=== PATIENT | female | born 1955 | race Caucasian/White ===

== ENCOUNTER 2020-07-17 07:34 | Outpatient (REF) | payer OTHER, SELFPAY ==
[2020-07-17 08:11] LABS: Basophils Percent Auto 0.8 % (0-2); Eosinophils Absolute Auto 0.4 X10*3/uL (0.0-0.4); Eosinophils Percent Auto 7.8 % (0-4); Hematocrit 40.3 % (37-47); Hemoglobin 13.4 g/dl (12.0-16.0); Imm Gran Abs Auto 0.01 X10*3/uL (0.00-0.03); Imm Gran Pct Auto 0.2 % (0.0-0.4); Immature Retic Fraction 10.1 % (3.0-15.9); Lymphocytes Absolute Auto 0.6 X10*3/uL (1.2-4.9); Lymphocytes Percent Auto 12.7 % (20-40); MANUAL DIFF FLAG SCAN; Mean Corpuscular HGB Conc 33.3 g/dl (31.0-35.0); Mean Corpuscular Volume 90.2 fL (80-98); Mean Platelet Volume 10.4 fL (9.4-12.3); Monocytes Absolute Auto 0.6 X10*3/uL (0.1-1.2); Monocytes Percent Auto 12.2 % (2-11); Neutrophils Absolute Auto 3.3 X10*3/uL (2.0-8.3); Neutrophils Percent Auto 66.3 % (45-73); Platelet Count 230 X10*3/uL (160-400); Red Blood Count 4.47 X10*6/uL (4.20-5.50); Red Cell Distribution Width 12.8 % (11.0-16.0); Retic HGB Equivalent 34.5 pg (30.0-35.0); Reticulocyte Percent 1.8 % (0.5-1.8); Reticulocytes Absolute 0.082 X10*6/uL (0.026-0.095); SCAN SMEAR FLAG 1
[2020-07-17 08:31] LABS: SLIDE REVIEW VERIFIED
[2020-07-17 08:55] LABS: Alanine Aminotransferase 20 U/L (0-31); Albumin Level 3.6 g/dL (3.5-5.0); Alkaline Phosphatase 84 U/L (39-117); Anion Gap 12 (12-20); Aspartate Amino Transferase 23 U/L (5-31); Bilirubin Total 0.8 mg/dL (0.0-1.0); Blood Urea Nitrogen 15 mg/dL (9-16); Calcium 8.4 mg/dL (8.4-10.2); Carbon Dioxide 30 mmol/L (22-29); Chloride 102 mmol/L (96-108); Cholesterol 169 mg/dL; Estimated Glomerular Filt Rate > 60; Glucose Random 93 mg/dL (60-115); HDL Cholesterol 37 mg/dL; Iron 84 mcg/dL (30-160); LDL Cholesterol Calculated 108 mg/dl; Percent Iron Saturation 31 % (15-50); Sodium 140 mmol/L (135-145); Total Iron Binding Capacity 273 mcg/dL (228-428); Total Protein 7.1 g/dL (6.5-8.0); Triglycerides 122 mg/dL; Unsaturated Iron Binding 189 ug/dL
[2020-07-17 08:56] LABS: Ferritin 117 ng/mL (10-250); Free T4 (Free Thyroxine) 2.07 ng/dL (0.71-1.85); Thyroid Stimulating Hormone 0.04 mIU/mL (0.32-4.0)
[2020-07-19 04:00] LABS: Folate 16.2 ng/mL (> or = 4.0); Vitamin B12 1055 pg/mL (200-900)
[2020-07-21 13:12] LABS: VITAMIN D (1,25 OH) D3 49 pg/mL; Vit D (1,25-Dihydroxy) Total 49 pg/mL (18-72); Vitamin D (1,25 OH) D2 <8 pg/mL
== END 2020-07-17 07:35 | disposition home or self-care (01) ==
LOC: HO.LAB 07:34
PROVIDERS: PCP Internal Medicine; Referring Provider Internal Medicine; Visit Provider Internal Medicine
DX: E03.9 Hypothyroidism, unspecified (principal); I10 Essential (primary) hypertension; E78.00 Pure hypercholesterolemia, unspecified; H30.023 Focal chorioretinal inflammation of posterior pole, bilateral
CPT/HCPCS: 36415; 80053; 80061; 82607; 82652; 82728; 82746; 83540; 84439; 84443; 85025; 85045

== ENCOUNTER 2020-07-26 19:07 | Outpatient (REF) | payer OTHER, SELFPAY ==
--- NOTE | 2020-07-26 19:10 | MR_ITS ---
MR LUMBAR SPINE WITHOUT CONTRAST CLINICAL INFORMATION: Radiculopathy. COMPARISON: Lumbar spine radiographs 05/20/2019. TECHNIQUE: MRI of the lumbar spine was obtained using routine sequences without contrast. FINDINGS: There is grade 1 degenerative anterolisthesis of L4 and L5 and L5 on S1 and there is grade 1 retrolisthesis of L1 on L2, L2 on L3, and L3 on L4. There Modic type I endplate signal changes at L2-L3. Multilevel endplate osteophytes. Vertebral body heights are maintained. Mild disc volume loss and disc desiccation at all levels. Conus terminates at the L1 level. There are no significant soft tissue findings. Undulation of the cauda equina nerve roots throughout the lumbar spine above the L4-L5 level, likely secondary to severe central canal stenosis at L4-L5. T12-L1: There is a small superiorly migrating left paracentral disc extrusion that results in mass effect on the traversing left nerve root within the left subarticular zone. Mild narrowing of the central canal. Mild bilateral foraminal encroachment. Engorged ventral epidural venous plexus. L1-L2: Grade 1 retrolisthesis. Diffuse annular disc bulge and mild bilateral facet arthropathy. No central canal stenosis. Mild bilateral foraminal encroachment. Engorged ventral epidural venous plexus. L2-L3: Grade 1 retrolisthesis. Diffuse annular disc bulge and moderate bilateral facet arthropathy. Bilateral subarticular zone stenosis with mass effect on the traversing L3 nerve roots bilaterally. Moderate bilateral foraminal stenosis with mild mass effect on the exiting L2 nerve roots bilaterally. L3-L4: Diffuse annular disc bulge and moderate bilateral facet arthropathy. Mild narrowing of the central canal. Moderate to severe bilateral foraminal stenosis with compression of the exiting L3 nerve roots bilaterally. L4-L5: Grade 1 degenerative anterolisthesis. Uncovered disc with a superimposed central disc protrusion. Severe bilateral facet arthropathy and ligamentum flavum thickening. Findings in concert result in severe central canal stenosis and severe bilateral foraminal stenosis with compression of the exiting L4 nerve roots bilaterally. L5-S1: Diffuse annular disc bulge the superimposed right paracentral disc protrusion and severe bilateral facet arthropathy and ligamentum flavum thickening. Bilateral subarticular zone stenosis with mass effect on the traversing S1 nerve roots bilaterally. Disc osteophyte and facet arthropathy result in severe bilateral foraminal stenosis with compression of the exiting L5 nerve roots bilaterally. MR/MR lumbar spine wo con IMPRESSION: - Advanced lumbar spondylosis, greatest at L4-L5 where grade 1 degenerative anterolisthesis and advanced multifactorial degenerative changes result in severe central canal stenosis and severe bilateral foraminal stenosis with compression of the exiting L4 nerve roots bilaterally. - Additional degenerative changes as discussed in detail above with multifactorial degenerative changes result in multilevel subarticular zone and multilevel foraminal stenosis with mass effect on multiple traversing and exiting nerve roots as described.
== END 2020-07-26 19:08 | disposition home or self-care (01) ==
LOC: HO.MRI 19:07
PROVIDERS: PCP Internal Medicine; Visit Provider Internal Medicine
DX: M54.10 Radiculopathy, site unspecified (principal)
CPT/HCPCS: 72148

== ENCOUNTER 2020-08-14 07:41 | Outpatient (REF) | payer OTHER, SELFPAY ==
--- NOTE | 2020-08-14 07:44 | MM_ITS ---
EXAMINATION: MM SCREENING DIGITAL BREAST TOMOSYNTHESIS, BILATERAL CLINICAL INFORMATION: Screening. Asymptomatic. The lifetime risk of breast cancer based on the Tyrer-Cuzick Model is 11%. COMPARISON: Mammography: 12/13/2018, 11/19/2017, 10/24/2016 TECHNIQUE: Digital breast tomosynthesis is performed in both the craniocaudal and mediolateral oblique views along with computer-aided detection (CAD). Synthesized 2D images are generated from the tomosynthesis. FINDINGS: There are scattered areas of fibroglandular density (ACR BI-RADS breast composition Category b). There are no significant masses, abnormal calcifications, or other abnormalities. There is a stable circumscribed nodule posterior 3:00 left breast likely intramammary node similar to prior exams. MM/MM tomosynthesis screening BI IMPRESSION: No significant changes from prior studies. ASSESSMENT: BI-RADS 2: Benign RECOMMENDATION: Routine annual mammography screening. This patient's information was entered into a reminder system with a target due date for their next mammogram.
== END 2020-08-14 07:42 | disposition home or self-care (01) ==
LOC: HO.MAMMO 07:41
PROVIDERS: PCP Internal Medicine; Visit Provider Internal Medicine
DX: Z12.31 Encounter for screening mammogram for malignant neoplasm of breast (principal)
CPT/HCPCS: 77063; 77067

== ENCOUNTER 2020-08-16 10:05 | Day surgery (SDC) | payer OTHER, SELFPAY ==
[2020-08-16 10:35] VITALS: BMI 41.5
[2020-08-16 10:53] VITALS: BP 179/100; PULSE 67; RESP 16; TEMP 36.2; O2SAT 98
--- NOTE | 2020-08-16 11:15 | FL_ITS ---
EXAMINATION: XR LUMBAR PUNCTURE CLINICAL INFORMATION: Left orbit non-Hodgkin's lymphoma. COMPARISON: MRI lumbar spine 07/26/2020 TECHNIQUE: Following explaining fluoroscopy-guided lumbar puncture procedure, benefits and risks, written consent was obtained from the patient. A timeout was performed prior to exam. Patient was placed prone and low back area was cleaned and draped in usual sterile manner. 1% lidocaine was injected at the skin above the L3-L4 disc level in the left paramidline location. A 20-gauge 6 inch long needle was inserted from the left paramidline location intrathecally at the L3-L4 disc level. The stylet was removed and approximately 2 mL of clear CSF fluid was collected in single test tube. No more fluid could be obtained. On manipulation of lumbar spinal needle there was no fluid obtained however, there was blood visualized. The exam was discontinued at this time. Needle was withdrawn and complete hemostasis achieved at puncture site. Patient tolerated procedure extremely well without immediate complications. FINDINGS: On previous CT imaging patient has significant stenosis at the L4-L5 disc level and venous engorgement cephalad to this disc level hence, very little CSF fluid obtained at this disc level. Fluoroscopy-guided L3-L4 lumbar puncture performed without immediate complications. FLUOROSCOPY TIME: 1.8 minutes DOSE AREA PRODUCT: 30.3 uGy-m2 (microgray-meter squared) FL/FL guided lumbar puncture LP IMPRESSION: Successful fluoroscopy-guided lumbar puncture with approximately 2 mL of clear CSF fluid collected.
[2020-08-16 12:45] VITALS: BP 150/80; PULSE 63; RESP 18; TEMP 36.7; O2SAT 97
[2020-08-16 13:15] VITALS: BP 140/68; PULSE 73; RESP 16; O2SAT 99
[2020-08-16 13:45] VITALS: BP 139/70; PULSE 67; RESP 18; O2SAT 99
[2020-08-16 14:15] VITALS: BP 130/61; PULSE 64; RESP 18; O2SAT 99
[2020-08-16 14:30] LABS: CSF Appearance Clear, Colorless; CSF Tube # 1
[2020-08-16 14:42] LABS: Glucose CSF 44 mg/dL; Total Protein CSF 60.6 mg/dL (15-45)
[2020-08-16 14:45] VITALS: BP 126/61; PULSE 57; RESP 16; TEMP 37.2; O2SAT 98
[2020-08-16 14:55] LABS: CSF Monos 18 %; Lymphocytes CSF 68 %; Neutrophils CSF 14 %
[2020-08-16 14:56] LABS: Appearance CSF CLEAR; CSF Tube # 1; Color CSF COLORLESS; White Blood Cell CSF 1 MM*3
[2020-08-16 14:57] LABS: Red Blood Cell CSF 118 MM*3
[2020-08-19 11:52] LABS: VDRL Qualitative CSF Nonreactive (Nonreactive)
== END 2020-08-16 14:57 | disposition home or self-care (01) ==
PROVIDERS: Internal Medicine; PCP Internal Medicine; Visit Provider Internal Medicine Medical Oncology
PROC: 009U3ZZ Drainage of Spinal Canal, Percutaneous Approach (ICD-10-PCS; CPT 62270; principal; 2020-08-16 11:30)
DX: C85.89 Other specified types of non-Hodgkin lymphoma, extranodal and solid organ sites (principal); I10 Essential (primary) hypertension; Z85.42 Personal history of malignant neoplasm of other parts of uterus; Z90.710 Acquired absence of both cervix and uterus; Z79.899 Other long term (current) drug therapy
CPT/HCPCS: 62328; 82945; 84157; 86592; 87015; 87070; 87101; 87102; 87205; 88108; 89051

== ENCOUNTER 2020-10-02 07:16 | Outpatient (REF) | payer OTHER, SELFPAY ==
[2020-10-02 09:05] LABS: Free T4 (Free Thyroxine) 2.02 ng/dL (0.71-1.85); Thyroid Stimulating Hormone 0.01 uIU/mL (0.32-4.0)
== END 2020-10-02 07:17 | disposition home or self-care (01) ==
LOC: HO.LAB 07:16
PROVIDERS: PCP Internal Medicine; Visit Provider Internal Medicine
DX: E03.9 Hypothyroidism, unspecified (principal)
CPT/HCPCS: 36415; 84439; 84443

== ENCOUNTER 2020-11-10 08:00 | Outpatient (RCR) | payer OTHER, SELFPAY ==
[2020-08-09 08:23] VITALS: BMI 43.0
[2020-08-09 08:24] VITALS: BP 177/80; PULSE 72; RESP 18; TEMP 36.4; O2SAT 98
--- NOTE | 2020-08-09 08:41 | PM.HEMONCPN ---
Medical Summary - Medical Summary Date of Service: 08/10/20 Chief complaint: Newly diagnosed lymphoma of eye. 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 She was seen a year ago for her chronic anemia. Unfortunately, she developed eye symptoms with redness of her eye as well as some blurry vision. After initial treatment for uveitis, she underwent specialized testing and has been diagnosed with choroidal lesion in her left eye worrisome for intra-ocular lymphoma. Fortunately, MRI of brain was negative for FABRIC SOURCER involvement. She has no symptoms such as headache, dizziness, fever, chills, loss of appetite or weight loss. She has not experienced any recent infections, no chest pain or shortness of breath,, no change in bowel habits. Review of Systems - Constitutional Reports as per HPI, Reports no additional constitutional complaints - Eyes Reports no additional eye complaints, Reports blurry vision, Reports change in vision, Reports other visual disturbances - Cardiovascular Reports no additional cardiovascular complaints - Respiratory Reports no additional respiratory complaints - Gastrointestinal Reports no additional gastrointestinal complaints [facility] Medical History: Medical History (Last Updated 08/09/20 @ 15:19 by Alicia Pan MD) Bilateral shoulder pain Carpal tunnel syndrome Endometrial cancer Hypertension Hypothyroid Iritis Obesity Osteopenia Family History: Family History (Last Updated 08/09/20 @ 08:28 by Gabbie Roque RN) Father No problems noted. Mother Maternal Aunt Breast cancer Surgical History: Surgical History (Last Updated 07/13/20 @ 11:43 by Lucy Edward [facility]) History of bilateral knee replacement History of cholecystectomy History of gastric bypass History of total abdominal hysterectomy and bilateral salpingo-oophorectomy Smoking status: Never smoker Alcohol intake: never Current occupational status: retired Oncology Screenings - ECOG Performance Status ECOG Performance Status: 1 Home Medications and Allergies Home Medications Medication Instructions Recorded Confirmed Type cetirizine 10 mg tablet 5 mg PO DAILY PRN 07/14/20 08/09/20 History cyanocobalamin (vitamin B-12) 1,000 mcg PO DAILY 07/14/20 08/09/20 History 1,000 mcg capsule ferrous sulfate 325 mg (65 mg 325 mg PO DAILY 07/14/20 08/09/20 History iron) tablet hydrochlorothiazide 25 mg tablet 25 mg PO DAILY 07/14/20 08/09/20 History nabumetone 750 mg tablet 750 mg PO BID 07/14/20 08/09/20 History alendronate 1 tab PO QWEEK 08/09/20 08/09/20 History Allergies Allergy/AdvReac Type Severity Reaction Status Date / Time No Known Allergies Allergy Mild NKA Verified 07/14/20 11:48 Exam Vital signs: Vital Signs Temp 97.6 F 08/09/20 08:24 Pulse 72 08/09/20 08:24 Resp 18 08/09/20 08:24 BP 177/80 H 08/09/20 08:24 Pulse Ox 98 08/09/20 08:24 Intake & Output 08/08/20 08/09/20 08/09/20 18:59 06:59 18:59 Other: Weight 117.4 kg Weight 117.4 kg Body Mass Index 43.0 - Constitutional Present: no acute distress - Routine HEENT Exam Head: Present: normal inspection Eye: Present: conjunctival injection, EOMI - Routine Neck Exam Present: full ROM. Absent: lymphadenopathy - Routine Respiratory Exam Present: CTAB - Routine Cardiovascular Exam Cardiovascular: Present: RRR, S1, S2 - Routine Abdominal Exam Present: normal bowel sounds, soft - Routine Extremities Exam Present: normal inspection Data - Labs Labs: Laboratory Tests 08/09/20 08/09/20 08/09/20 08:50 08:50 08:50 ESR 19 PT 12.1 INR 1.0 APTT 30.1 Lactate Dehydrogenase 165 Progress Note: A/P (1) Intraocular non-Hodgkin's malignant lymphoma Status: Acute Assessment and plan: 1. This is a 65-year-old woman who has been diagnosed with intra-ocular lymphoma of the left eye. She presented with redness of the eye that was ongoing for a year, initially diagnosed as uveitis. Choroidal lesion has been visualized by her retina specialist. She underwent MRI of the brain with contrast at [facility] on 07/28/2020, this was negative. She is being scheduled for lumbar puncture by Interventional Radiology under fluoroscopic guidance. If negative for FABRIC SOURCER involvement she will be referred to [place] for further treatment of her choroidal lymphoma. She has no constitutional symptoms, normal blood work and no lymphadenopathy on examination. Plan was discussed with the patient. Follow-up in 6 weeks. - Time Spent With Patient Total time spent is greater than 50% in coordination of care (as documented) at patient's floor/unit and/or counseling patient: 25 - 35 minutes
[2020-08-09 09:11] LABS: Prothrombin Time 12.1 SEC (10.8-13.0)
[2020-08-09 09:14] LABS: Partial Thromboplastin Time 30.1 SEC (24.1-38.0)
[2020-08-09 09:32] LABS: Lactate Dehydrogenase 165 U/L (122-220)
[2020-08-09 10:33] LABS: Erythrocyte Sedimentation Rate 19 MM/HR (0-20)
--- NOTE | 2020-08-09 15:54 | PC.NURSE ---
Patient notified of lumbar puncture date and time. (08/16/2020 [id number]) via telephone discussion.
[2020-09-08 08:54] VITALS: PULSE 67; RESP 18; TEMP 36.3; O2SAT 98; BMI 42.9
--- NOTE | 2020-09-08 09:48 | MHC.HEMONC ---
Pt had f/u with Dr Pan - she has no new c/o.
--- NOTE | 2020-09-08 10:39 | P.PNHO_ITS ---
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 She is doing well and has no new complaints today. She is here to discuss results of blood work and lumbar puncture. She tolerated the procedure well but it was a little difficult because of her back problems. She was told by the radiologist that there was very little fluid that could be obtained. Review of Systems - Constitutional Reports no additional constitutional complaints [facility] Medical History: Medical History (Last Updated 08/09/20 @ 15:19 by Alicia Pan MD) Bilateral shoulder pain Carpal tunnel syndrome Endometrial cancer Hypertension Hypothyroid Iritis Obesity Osteopenia Family History: Family History (Last Reviewed 08/23/20 @ 16:10 by THAO Larios) Father No problems noted. Mother Maternal Aunt Breast cancer Surgical History: Surgical History (Last Reviewed 08/23/20 @ 16:10 by THAO Larios) History of bilateral knee replacement History of cholecystectomy History of gastric bypass History of total abdominal hysterectomy and bilateral salpingo-oophorectomy Smoking status: Never smoker Home Medications and Allergies Home Medications Medication Instructions Recorded Confirmed Type cetirizine 10 mg tablet 5 mg PO DAILY PRN 07/14/20 08/23/20 History cyanocobalamin (vitamin B-12) 1,000 mcg PO DAILY 07/14/20 08/23/20 History 1,000 mcg capsule ferrous sulfate 325 mg (65 mg 325 mg PO DAILY 07/14/20 08/23/20 History iron) tablet hydrochlorothiazide 25 mg tablet 25 mg PO DAILY 07/14/20 08/23/20 History nabumetone 750 mg tablet 750 mg PO BID 07/14/20 08/23/20 History Allergies Allergy/AdvReac Type Severity Reaction Status Date / Time No Known Allergies Allergy Mild NKA Verified 08/23/20 16:23 Exam Vital signs: Vital Signs Temp 97.3 F 09/08/20 08:54 Pulse 67 09/08/20 08:54 Resp 18 09/08/20 08:54 BP 177/80 H 08/09/20 08:24 Pulse Ox 98 09/08/20 08:54 Intake & Output 09/07/20 09/08/20 09/08/20 18:59 06:59 18:59 Other: Weight 117 kg Weight 117 kg Body Mass Index 42.9 - Constitutional Present: no acute distress - Routine HEENT Exam Head: Present: normal inspection - Routine Neck Exam Present: full ROM. Absent: lymphadenopathy - Routine Respiratory Exam Present: CTAB - Routine Cardiovascular Exam Cardiovascular: Present: RRR, S1, S2 - Routine Abdominal Exam Present: normal bowel sounds, soft - Routine Extremities Exam Present: normal inspection Data - Labs Labs: 08/09/20 08:50 Erythrocyte Sedimentation Rate Routine Lactate Dehydrogenase Routine PTT [Partial Thromboplastin Time] Routine Prothrombin Time INR Routine Laboratory Last Values ESR 19 MM/HR (0-20) 08/09/20 08:50 PT 12.1 SEC (10.8-13.0) 08/09/20 08:50 INR 1.0 (0.9-1.1) 08/09/20 08:50 APTT 30.1 SEC (24.1-38.0) 08/09/20 08:50 Lactate Dehydrogenase 165 U/L (122-220) 08/09/20 08:50 Progress Note: A/P (1) Intraocular non-Hodgkin's malignant lymphoma Status: Acute Assessment and plan: 1. This is a 65-year-old woman who has been diagnosed with intra-ocular lymphoma of the left eye. She presented with redness of the eye that was ongoing for a year, initially diagnosed as uveitis. Choroidal lesion has been visualized by her retina specialist. She underwent MRI of the brain with contrast at [facility] on 07/28/2020, this was negative. Blood work in June and July 2020 was normal. No elevation in ESR or LDH. CSF evaluation performed 08/16/2020 revealed CSF WBC 1, RBC 118, glucose 44 mg/dL, CSF total protein 60.6 mg/dL (15-45). Cytology was negative for malignant cells. Fluid was hypocellular showing rare monocytes and red blood cells. Flow cytometry was not performed. It does not appear that she has any SALES AND LEASING CONSULTANT involvement. She is going to [place] to meet with Dr. Jarocho Nicholson ([phone]) for definitive diagnosis and management. Follow-up in 2 months. CC: Dr Calin Rahman. - Time Spent With Patient Total time spent is greater than 50% in coordination of care (as documented) at patient's floor/unit and/or counseling patient: 15 - 24 minutes
--- NOTE | 2020-11-10 08:04 | P.PNHO_ITS ---
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 She underwent MRI of the brain with contrast at [facility] on 07/28/2020, this was negative. Blood work in June and July 2020 was normal. No elevation in ESR or LDH. CSF evaluation performed 08/16/2020 revealed CSF WBC 1, RBC 118, glucose 44 mg/dL, CSF total protein 60.6 mg/dL (15-45). Cytology was negative for malignant cells. Fluid was hypocellular showing rare monocytes and red blood cells. Flow cytometry was not performed. It does not appear that she has any FRUIT AND VEGETABLE FACTORY WORKER involvement. She is going to [place] to meet with Dr. Jarocho Nicholson ([phone]) for definitive diagnosis and management. Interval History Interval history: Patient is here in follow-up. She is doing quite well, fortunately she did not have intra-ocular lymphoma. She has a benign condition for which she has been started on high-dose steroids and is being now tapered as her symptoms have improved. She is now on 20 mg prednisone daily. She does report some myopathy and weight gain with steroids. She denies any chest pain, shortness of breath, fever or chills. No headache or dizziness. She is taking iron supplements 3 times a week. Review of Systems - Constitutional Reports as per HPI, Reports no additional constitutional complaints - Cardiovascular Reports no additional cardiovascular complaints - Respiratory Reports no additional respiratory complaints - Gastrointestinal Reports no additional gastrointestinal complaints [facility] Medical History: Medical History (Last Updated 08/09/20 @ 15:19 by Alicia Pan MD) Bilateral shoulder pain Carpal tunnel syndrome Endometrial cancer Hypertension Hypothyroid Iritis Obesity Osteopenia Family History: Family History (Last Reviewed 08/23/20 @ 16:10 by THAO Larios) Father No problems noted. Mother Maternal Aunt Breast cancer Surgical History: Surgical History (Last Reviewed 08/23/20 @ 16:10 by THAO Larios) History of bilateral knee replacement History of cholecystectomy History of gastric bypass History of total abdominal hysterectomy and bilateral salpingo-oophorectomy Social History: Social History (Last Updated 11/10/20 @ 08:12 by Josee Thayer) Alcohol History: Alcohol intake: former Alcohol History Details: Alcohol intake frequency: does not drink Tobacco History: Smoking Status: Never smoker Substance Use History: Use of substances other than those prescribed or required for medical reasons : No Occupation Assessmet: Current occupational status: retired Smoking status: Never smoker Oncology Screenings - ECOG Performance Status ECOG Performance Status: 1 Home Medications and Allergies Home Medications Medication Instructions Recorded Confirmed Type cetirizine 10 mg tablet 5 mg PO DAILY PRN 07/14/20 08/23/20 History cyanocobalamin (vitamin B-12) 1,000 mcg PO DAILY 07/14/20 08/23/20 History 1,000 mcg capsule ferrous sulfate 325 mg (65 mg 325 mg PO DAILY 07/14/20 08/23/20 History iron) tablet hydrochlorothiazide 25 mg tablet 25 mg PO DAILY 07/14/20 08/23/20 History nabumetone 750 mg tablet 750 mg PO BID 07/14/20 08/23/20 History prednisone 20 mg PO DAILY 11/10/20 11/10/20 History Allergies Allergy/AdvReac Type Severity Reaction Status Date / Time No Known Allergies Allergy Mild NKA Verified 08/23/20 16:23 Exam Vital signs: Vital Signs Temp 97.3 F 09/08/20 08:54 Pulse 67 09/08/20 08:54 Resp 18 09/08/20 08:54 BP 177/80 H 08/09/20 08:24 Pulse Ox 98 09/08/20 08:54 Weight 117 kg Body Mass Index 42.9 - Constitutional Present: no acute distress - Routine HEENT Exam Head: Present: normal inspection - Routine Neck Exam Present: full ROM. Absent: lymphadenopathy - Routine Respiratory Exam Present: CTAB - Routine Cardiovascular Exam Cardiovascular: Present: RRR, S1, S2 - Routine Abdominal Exam Present: normal bowel sounds, soft - Routine Extremities Exam Present: normal inspection Data - Labs Labs: 08/09/20 08:50 Erythrocyte Sedimentation Rate Routine Lactate Dehydrogenase Routine PTT [Partial Thromboplastin Time] Routine Prothrombin Time INR Routine Laboratory Last Values ESR 19 MM/HR (0-20) 08/09/20 08:50 PT 12.1 SEC (10.8-13.0) 08/09/20 08:50 INR 1.0 (0.9-1.1) 08/09/20 08:50 APTT 30.1 SEC (24.1-38.0) 08/09/20 08:50 Lactate Dehydrogenase 165 U/L (122-220) 08/09/20 08:50 Progress Note: A/P (1) Intraocular non-Hodgkin's malignant lymphoma Status: Chronic Assessment and plan: 1. This is a 65-year-old woman who has been diagnosed with a Choroidal lesion, proved not to be intra-ocular lymphoma. She is currently being tapered off high-dose steroids and symptomatically doing better. 2. History of normocytic/mild iron deficiency anemia. I have asked her to discontinue iron supplementation. She is no longer anemic and her iron studies have been normal. Recheck labs in 6 months. - Time Spent With Patient Total time spent is greater than 50% in coordination of care (as documented) at patient's floor/unit and/or counseling patient: 15 - 24 minutes
[2020-11-10 08:09] VITALS: BP 153/79; PULSE 78; RESP 12; TEMP 36.3; O2SAT 100; BMI 44.9
[2020-11-10 09:47] LABS: Free T4 (Free Thyroxine) 1.33 ng/dL (0.71-1.85); Thyroid Stimulating Hormone 0.14 uIU/mL (0.32-4.0)
--- NOTE | 2020-11-10 09:48 | MHC.HEMONCMA ---
Patient came in for a follow up today, states she is doing ok, no complaints. Her allergies and medications were reviewed and updated. She had labs and will return in 6 months for a follow up.
== END 2021-04-20 | disposition home or self-care (01) ==
LOC: HO.ONC 08:00
PROVIDERS: PCP Internal Medicine; Visit Provider Internal Medicine
DX: H31.8 Other specified disorders of choroid (principal); Z86.2 Personal history of diseases of the blood and blood-forming organs and certain disorders involving the immune mechanism; Z79.52 Long term (current) use of systemic steroids
CPT/HCPCS: 36415; 83615; 84439; 84443; 85610; 85652; 85730; 99213; 99214

== ENCOUNTER 2020-12-23 07:38 | Outpatient (REF) | payer OTHER, SELFPAY ==
[2020-12-23 08:56] LABS: Free T4 (Free Thyroxine) 1.24 ng/dL (0.71-1.85)
== END 2020-12-23 07:39 | disposition home or self-care (01) ==
LOC: HO.LAB 07:38
PROVIDERS: PCP Internal Medicine; Visit Provider Internal Medicine
DX: E03.9 Hypothyroidism, unspecified (principal)
CPT/HCPCS: 36415; 84439; 84443